=== PATIENT | male | born 1965 | race Caucasian/White ===

== ENCOUNTER 2017-04-24 11:13 | Emergency (ER) | payer MEDICAID, OTHER, SELFPAY ==
[~2017-04-24] VITALS: Ht 185.4 cm; Wt 88.0 kg
[2017-04-24] MEDS ORDERED: IBUPROFEN 200 MG TABLET PO ONE (13:30)
[2017-04-24] MEDS ORDERED: IBUPROFEN 200 MG TABLET ONE (13:53)
[2017-04-24 14:28] LABS: RAPID INFLUENZA A POSITIVE (Negative); RAPID INFLUENZA B Negative (Negative)
[2017-04-24 15:31] VITALS: BP 132/76
== END 2017-04-24 15:33 | disposition home or self-care (01) ==
LOC: ED 14:08
DX: J09.X2 Influenza due to identified novel influenza A virus with other respiratory manifestations (principal)
CPT/HCPCS: 87400; 99284

== ENCOUNTER 2019-09-17 21:23 | Emergency (ER) | payer SELFPAY ==
[~2019-09-17] VITALS: Ht 185.4 cm; Wt 98.5 kg
[2019-09-17 21:25] VITALS: BP 135/97
--- NOTE | 2019-09-17 21:39 | NUR ---
PT HERE FOR N/V THAT STARTED SUNDAY AND HAS COME BACK AGAIN TODAY. PT VOMITS ANY TIME HE TRIES TO EAT OR DRING. PT COMPLAINING OF ALL OVER ABD PAIN. NIKHIL. AT BEDSIDE
[2019-09-17] MEDS ORDERED: SODIUM CHLORIDE 0.9% 1,000ML IVBOLUS ONE (22:00)
[2019-09-17] MEDS ORDERED: ONDANSETRON 2MG/ML, 2ML ONE (22:00)
[2019-09-17] MEDS ORDERED: ONDANSETRON 2MG/ML, 2ML IVPush ONE (22:00)
[2019-09-17 22:11] LABS: BASOPHILS # (AUTO) 0.02 x10^3/uL (0-0.1); BASOPHILS % (AUTO) 0 % (0-1); EOSINOPHILS # (AUTO) 0.05 x10^3/uL (0-0.4); EOSINOPHILS % (AUTO) 1 % (1-7); LYMPHOCYTES # (AUTO) 1.63 x10^3/uL (1-3.4); LYMPHOCYTES % (AUTO) 19 % (22-44); MD NO; MEAN CORPUSCULAR HEMOGLOBIN 29.3 pg (27.5-34.5); MEAN CORPUSCULAR HGB CONC 33.5 g/dL (33.2-36.2); MEAN CORPUSCULAR VOLUME 87.4 fL (81-97); MEAN PLATELET VOLUME 7.6 fL (7.4-10.4); MONOCYTES # (AUTO) 0.55 x10^3/uL (0.2-0.8); MONOCYTES % (AUTO) 7 % (2-9); NEUTROPHILS # (AUTO) 6.16 x10^3/uL (1.8-6.8); NEUTROPHILS % (AUTO) 73 % (42-75); PLATELET COUNT 304 x10^3/uL (130-400); RED BLOOD COUNT 5.67 x10^6/uL (4.38-5.82); RED CELL DISTRIBUTION WIDTH 12.9 % (9.4-14.8)
[2019-09-17 22:19] LABS: ALANINE AMINOTRANSFERASE 44 U/L (12-78); ANION GAP 6 mmol/L (5-15); CALCIUM 8.7 mg/dL (8.5-10.1); CHLORIDE 108 mmol/L (98-107); CREATININE 1.14 mg/dL (0.7-1.3)
[2019-09-17 22:21] LABS: ALKALINE PHOSPHATASE 37 U/L (45-117); BILIRUBIN,TOTAL 0.5 mg/dL (0.2-1.0); TOTAL PROTEIN 7.4 g/dL (6.4-8.2)
[2019-09-17] MEDS ORDERED: OMNIPAQUE 350 MG/ML, 100ML BOTTLE ONE (23:06)
[2019-09-17] MEDS ORDERED: PROMETHAZINE 25 MG/ML, 1ML ONE (23:20)
[2019-09-17] MEDS ORDERED: PROMETHAZINE 25 MG/ML, 1ML IM ONE (23:30)
== END 2019-09-18 00:14 | disposition home or self-care (01) ==
LOC: ED 09-18 00:01
DX: R11.2 Nausea with vomiting, unspecified (principal); E86.0 Dehydration; R19.7 Diarrhea, unspecified; R50.9 Fever, unspecified; R10.9 Unspecified abdominal pain; N32.89 Other specified disorders of bladder; F17.210 Nicotine dependence, cigarettes, uncomplicated
CPT/HCPCS: 36415; 74177; 80053; 83605; 83690; 85025; 96361; 96372; 96374; 99285; 99406; J2405; J2550; J7030; Q9967

== ENCOUNTER 2019-10-09 21:54 | Emergency (ER) | payer OTHER ==
[~2019-10-09] VITALS: Ht 185.4 cm; Wt 97.8 kg
[2019-10-09] MEDS ORDERED: MORPHINE SULFATE 4 MG/ML, 1ML IVPush PRN (22:30)
[2019-10-09] MEDS ORDERED: ONDANSETRON 2MG/ML, 2ML ONE (22:30)
[2019-10-09] MEDS ORDERED: ONDANSETRON 2MG/ML, 2ML IVPush ONE (22:30)
[2019-10-09] MEDS ORDERED: MORPHINE SULFATE 4 MG/ML, 1ML ONE (22:30)
--- NOTE | 2019-10-09 22:37 | NUR ---
PT TO ED WITH C/O RLQ ABDOMINAL PAIN, NAUSEA, AND VOMITING THAT STARTED AROUND 2000 TONIGHT. DENIES ANY URINARY SYMPTOMS, FEVER, OR ABDOMINAL SURGERIES. 18 G IV STARTED IN RIGHT HAND. MEDS GIVEN PER EMAR.
[2019-10-09 22:38] LABS: BASOPHILS # (AUTO) 0.04 x10^3/uL (0-0.1); BASOPHILS % (AUTO) 0 % (0-1); EOSINOPHILS # (AUTO) 0.16 x10^3/uL (0-0.4); EOSINOPHILS % (AUTO) 2 % (1-7); LYMPHOCYTES # (AUTO) 1.55 x10^3/uL (1-3.4); LYMPHOCYTES % (AUTO) 18 % (22-44); MD NO; MEAN CORPUSCULAR HGB CONC 33.1 g/dL (33.2-36.2); MEAN CORPUSCULAR VOLUME 87.6 fL (81-97); MEAN PLATELET VOLUME 7.6 fL (7.4-10.4); MONOCYTES # (AUTO) 0.66 x10^3/uL (0.2-0.8); MONOCYTES % (AUTO) 7 % (2-9); NEUTROPHILS # (AUTO) 6.46 x10^3/uL (1.8-6.8); NEUTROPHILS % (AUTO) 73 % (42-75); PLATELET COUNT 311 x10^3/uL (130-400); RED BLOOD COUNT 5.76 x10^6/uL (4.38-5.82); RED CELL DISTRIBUTION WIDTH 13.5 % (9.4-14.8)
[2019-10-09 22:47] LABS: ALANINE AMINOTRANSFERASE 51 U/L (12-78); ANION GAP 7 mmol/L (5-15); CHLORIDE 108 mmol/L (98-107); CREATININE 1.24 mg/dL (0.7-1.3)
[2019-10-09 22:49] LABS: ALKALINE PHOSPHATASE 35 U/L (45-117); BILIRUBIN,TOTAL 0.3 mg/dL (0.2-1.0); TOTAL PROTEIN 7.5 g/dL (6.4-8.2)
[2019-10-09 22:51] LABS: MICROSCOPIC INDICATED
--- NOTE | 2019-10-09 23:03 | NUR ---
PT TO AND FROM CT.
[2019-10-09] MEDS ORDERED: OMNIPAQUE 350 MG/ML, 100ML BOTTLE ONE (23:06)
[2019-10-10 00:40] VITALS: BP 126/87
== END 2019-10-10 00:42 | disposition home or self-care (01) ==
LOC: ED 23:46
DX: N30.00 Acute cystitis without hematuria (principal); N32.3 Diverticulum of bladder; F17.200 Nicotine dependence, unspecified, uncomplicated
CPT/HCPCS: 36415; 74177; 80053; 81001; 83690; 85025; 87077; 87086; 96374; 96375; 99285; J2270; J2405; Q9967